=== PATIENT | male | born 1995 | race Caucasian/White ===

== ENCOUNTER 2020-02-24 12:17 | Emergency (ER) | payer SELFPAY ==
[~2020-02-24] VITALS: Ht 167.6 cm; Wt 86.4 kg
[2020-02-24 12:23] VITALS: BP 127/74
== END 2020-02-24 13:11 | disposition home or self-care (01) ==
LOC: EMS 12:21
DX: U07.1 COVID-19 (principal)
CPT/HCPCS: Z7502

== ENCOUNTER 2020-03-03 14:52 | Emergency (ER) | payer SELFPAY ==
[~2020-03-03] VITALS: Ht 167.6 cm; Wt 86.4 kg
[2020-03-03 15:29] LABS: COVID AG,FIA SOURCE NASOPHARYNGEAL
[2020-03-03 16:20] VITALS: BP 132/78
== END 2020-03-03 16:25 | disposition home or self-care (01) ==
LOC: EMS 14:56
DX: R05 Cough (principal); Z20.828 Contact with and (suspected) exposure to other viral communicable diseases
CPT/HCPCS: 87426